=== PATIENT | female | born 1945 | race Caucasian/White ===

== ENCOUNTER 2016-05-22 13:42 | Observation (INO) | payer MEDICARE, BC ==
[~2016-05-22] VITALS: Ht 162.6 cm; Wt 79.5 kg
[~2016-05-22 13:42] MED LIST: ALPR0.5T6 PO; ATOR10TA65 PO; BUPR150T6 PO; CYCL-319 PO; DULO20CA17 PO; FURO40TA4 PO; HYDR-3498 PO; METO25TA4 PO; OLAN5TAB5 PO; ROPI1TAB PO; TRAM50TA2 PO
[2016-05-22] MEDS ORDERED: SOD CHLORIDE 0.9% 1,000 ML IV STA (16:27)
[2016-05-22 16:56] LABS: ADD SCAN DIFF NO
[2016-05-22 16:59] LABS: BASOPHILS % 0.4 % (0.0-2.0); EOSINOPHILS # 0.2 10^3/ul (0.0-0.5); EOSINOPHILS % 2.5 % (0.0-7.0); HEMATOCRIT 39.5 % (37.0-47.0); HEMOGLOBIN 12.9 g/dl (12.0-16.0); LYMPHOCYTES # 2.2 10^3/ul (0.8-2.9); LYMPHOCYTES % 24.2 % (15.0-51.0); MEAN CORPUSCULAR HGB CONC 32.7 g/dl (32.0-37.0); MEAN PLATELET VOLUME 9.6 fl (7.4-10.4); MONOCYTE # 0.5 10^3/ul (0.3-0.9); MONOCYTES % 5.9 % (0.0-11.0); NEUTROPHILS % 66.7 % (39.0-77.0); PLATELET COUNT 236 10^3/UL (140-415); RED BLOOD COUNT 4.03 10^6/ul (4.20-5.40); RED CELL DISTRIBUTION WIDTH 14.4 % (11.5-14.5)
[2016-05-22 17:01] LABS: ADD UMIC YES; URINE BILIRUBIN (Dip) NEGATIVE (NEGATIVE); URINE BLOOD (Dip) NEGATIVE (NEGATIVE); URINE COLOR LT. YELLOW (YELLOW); URINE GLUCOSE (Dip) NEGATIVE (NEGATIVE); URINE KETONES (Dip) NEGATIVE (NEGATIVE); URINE LEUKOCYTE ESTERASE (Dip) NEGATIVE (NEGATIVE); URINE NITRITE (Dip) POSITIVE (NEGATIVE); URINE TOTAL PROTEIN (Dip) NEGATIVE (NEGATIVE); URINE UROBILINOGEN (Dip) 0.2 E.U./dL (0.1-1.0)
[2016-05-22 17:12] LABS: CHLORIDE 105 mmol/L (97-110); SODIUM 147 mmol/L (135-144)
[2016-05-22 17:14] LABS: ALBUMIN/GLOBULIN RATIO 1.53; ANION GAP 17 (8-16); ASPARTATE AMINO TRANSFERASE 65 IU/L (15-46); BILIRUBIN,INDIRECT 0.1 mg/dl (0-1.1); BILIRUBIN,TOTAL 0.1 mg/dl (0.2-1.3); CARBON DIOXIDE 29 mmol/L (21-31); CREATININE 0.76 mg/dl (0.44-1.00); TOTAL PROTEIN 6.6 g/dl (6.1-8.1)
[2016-05-22 17:15] LABS: ALANINE AMINOTRANSFERASE 82 IU/L (13-69); ALKALINE PHOSPHATASE 119 IU/L (42-121); BLOOD UREA NITROGEN 16 mg/dl (7-20); CALCIUM 9.5 mg/dl (8.4-10.2); GLUCOSE 101 mg/dl (70-220)
[2016-05-22 17:17] LABS: BACTERIA,URINE MANY; SQUAMOUS EPITHELIAL CELL,UR MODERATE; URINE RBCS NONE SEEN /HPF ([, 0])
[2016-05-22] MEDS ORDERED: CEFTRIAXONE 1 GM/50 ML (PMX) 50 ML IVPB ONE (17:30)
[2016-05-22 17:34] LABS: TROPONIN-I < 0.012 ng/ml (0.00-0.12)
--- NOTE | 2016-05-22 17:42 | RADRPT ---
PROCEDURE: Chest 1 views. CLINICAL INDICATION: Chest pain and trauma TECHNIQUE: AP views of the chest was obtained. COMPARISON: None. FINDINGS: The heart is large. The lungs are hyperexpanded. Scattered atelectasis is noted in the bilateral lo wer lobes. No consolidations are identified. No pneumothorax is seen. The osseous structures are osteopenic, but appear grossly intact. Degenerative changes are seen in the shoulders. IMPRESSION: Cardiomegaly . Hyperexpanded lungs. Scattered atelectasis in the bilateral lower lobes. No visualized traumatic injury. If there is high clinical suspicion for traumatic injury, further evaluation with CT should be consi dered. RPTAT: AA .Joshua Chu MD, Date Time Electronically viewed and signed by .Joshua Chu MD, on 05/22/2016 17:42 .P/
--- NOTE | 2016-05-22 17:44 | RADRPT ---
PROCEDURE: Right knee radiographs. CLINICAL INDICATION: Right knee pain. TECHNIQUE: Three views. Frontal, lateral, and oblique. COMPARISON: No prior studies are available for comparison. FINDINGS: There is no fracture or dislocation. The soft tissues are normal. There are degenerative changes with osteophytes arising from all 3 joint compartment margins. There is lateral and patellofemoral joint compartment narrowing. There is lateral joint compartment defo rmity and subarticular sclerosis. There is associated valgus deformity. There is no lytic or blastic lesion. There is no radiopaque foreign body. IMPRESSION: 1. Severe degenerative changes predominately involving the lateral joint compartment. 2. No acute abnormality. RPTAT: QQ .Sohail Lee MD, MD Date Time Electronically viewed and signed by .Sohail Lee MD, on 05/22/2016 17:44 .R/
--- NOTE | 2016-05-22 17:54 | RADRPT ---
PROCEDURE: CT Brain without contrast. CLINICAL INDICATION: Altered mental status. TECHNIQUE: A CT of the brain without contrast was performed utilizing axial sections from the skul l base through the vertex. The patient was scanned without intravenous contrast enhancement. Sagitta l and coronal reformatted images were obtained using the data from the axial images. Total exam DLP is 720.23 mGy-cm. CTDIvol is 44.63 mGy. One or more of the following dose reduction techniques were used: Automated exposure control, adjustment of the mA and/or kV according to patient size, use of iterative reconstruction technique. COMPARISON: None available. FINDINGS: There is normal ann-white matter differentiation. There is enlargement of the ventricles and subarachnoid spaces consistent with atrophy. There is decreased attenuation of the periventricular white matter consistent with microangiopathic ischemic change. There is no intracranial hemorrhage or space-occupying lesion. There are vascular calcifications consistent with atherosclerosis. There is no skull fracture or lytic lesion. IMPRESSION: 1. Atrophy. 2. Microangiopathic ischemic change. 3. Atherosclerosis. 4. Otherwise unremarkable noncontrast CT scan of the brain. 5. No intracranial hemorrhage. RPTAT: QQ .Sohail Lee MD, Date Time Electronically viewed and signed by .Sohail Lee MD, on 05/22/2016 17:54 .R/
--- NOTE | 2016-05-22 18:28 | ERA ---
ER Documentation Chief Complaint Date/Time DATE: 05/22/16 TIME: 18:22 Chief Complaint FELL 4 DAYS AGO,HIT HER HEAD,COMPLAINTS OF HEADACHE AND NECK PAIN.NO KO HPI 71-year-old woman presents with for recent falls and cloudy mentation. states she has been confused for the last 3 days and recently fell and struck her scalp against the wall and sustained bruising to the right knee. She has been urinating more frequently. She has had no fevers or chills, no chest pain, no shortness of breath, no vomiting or diarrhea. ROS All systems reviewed and are negative except as per history of present illness. Medications Home Meds Active Scripts Cyclobenzaprine Hcl* (Cyclobenzaprine Hcl*) 10 Mg Tablet, 10 MG PO TID, #15 TAB Prov:PRANAV FRIEND 11/06/14 Hydrocodone Bit-Acetaminophen* ([place]*) 5-325 Mg Tab, 1 TAB PO Q6 Y for PAIN, # 20 TAB Prov:PRANAV FRIEND 11/06/14 Reported Medications Duloxetine Hcl* (Duloxetine Hcl*) 20 Mg Capsule.dr, 20 MG PO QAM, CAP 11/06/14 Tramadol HCl (Tramadol HCl) 50 Mg Tab, 50 MG PO BID Y for PAIN, TAB 11/06/14 Metoprolol Tartrate* (Lopressor*) 25 Mg Tablet, 25 MG PO BID, TAB 11/06/14 Atorvastatin Calcium (Atorvastatin Calcium) 10 Mg Tab, 10 MG PO HS, TAB 11/06/14 Bupropion Hcl* (Bupropion XL*) 150 Mg Tab.er.24h, 150 MG PO DAILY, TAB.SA 11/06/14 Alprazolam* (Alprazolam*) 0.5 Mg Tablet, 0.5 MG PO QHS Y for ANXIETY, TAB 11/06/14 Furosemide* (Furosemide*) 40 Mg Tablet, 40 MG PO DAILY, TAB 11/06/14 Olanzapine* (Zyprexa*) 5 Mg Tablet, 5 MG PO BID, TAB 11/06/14 Ropinirole Hcl* (Ropinirole Hcl*) 1 Mg Tablet, 1 MG PO TID, TAB 11/06/14 Allergies Allergies: Coded Allergies: morphine (Verified Allergy, Intermediate, 11/06/14) PMhx/Soc Hypercholesterolemia, anxiety, psychiatric illness History of Surgery: Yes (spine, arm) Anesthesia Reaction: No Hx Neurological Disorder: No Hx Respiratory Disorders: No Hx Cardiac Disorders: Yes (CHF, HTN, High cholesterol) Hx Psychiatric Problems: No Hx Miscellaneous Medical Probl: Yes (diabetes, gout, tumor removal) Hx Alcohol Use: Yes (occasional) Hx Substance Use: No Hx Tobacco Use: No Smoking Status: Never smoker FmHx Family History: No diabetes Physical Exam Vitals Vital Signs Date Time Temp Pulse Resp B/P Pulse Ox O2 Delivery O2 Flow Rate FiO2 05/22/16 18:45 97.8 78 18 167/89 97 Room Air 05/22/16 13:55 97.8 96 18 157/87 98 Physical Exam GENERAL: Well-developed, dehydrated, afebrile HEENT: Dry mucous membranes, pink conjunctiva, no cervical spine tenderness or step-off deformities, no goiter, no jaundice or icterus, extraocular movements intact without pain. No submandibular induration, and no pharyngeal erythema NEURO: Alert and oriented 2, appears confused, able to answer simple questions and follow simple commands, cranial nerves II through XII intact bilaterally, pupils equal round reactive to light, no focal deficits or facial asymmetry, sensation intact distally Strength 5/5 in upper and lower extremities bilaterally CARDIAC: Regular rate and rhythm, no murmurs rubs or gallops LUNGS: Clear bilaterally no wheezing crackles or stridor ABDOMEN: Soft nontender, no guarding, no rigidity, no rebound, no psoas sign no obturator sign. Normoactive bowel sounds SKIN: Warm and dry to touch, positive soft tissue contusion to the anterior right knee without bony tenderness, no ecchymosis, no target lesions, and without ulcers EXTREMITIES: No clubbing cyanosis or edema, calves are bilaterally symmetrical, no Homans sign, no popliteal cord sign. Distal pulses equal and bilateral PSYCH: Confused Result Diagram: 05/22/16 1646 05/22/16 1646 Results 24 hrs Laboratory Tests Test 05/22/16 16:38 05/22/16 16:46 Urine Color LT. YELLOW Urine Clarity CLOUDY Urine pH 6.0 Urine Specific [place] 1.025 Urine Ketones NEGATIVE Urine Nitrite POSITIVE Urine Bilirubin NEGATIVE Urine Urobilinogen 0.2 E.U./dL Urine Leukocyte Esterase NEGATIVE Urine Microscopic RBC NONE SEEN/HPF Urine Microscopic WBC 5-10/HPF Urine Squamous Epithelial Cells MODERATE Urine Bacteria MANY Urine Hemoglobin NEGATIVE Urine Glucose NEGATIVE% Urine Total Protein NEGATIVE White Blood Count 9.010^3/ul Red Blood Count 4.0310^6/ul Hemoglobin 12.9g/dl Hematocrit 39.5% Mean Corpuscular Volume 98.0fl Mean Corpuscular Hemoglobin 32.0pg Mean Corpuscular Hemoglobin Concent 32.7g/dl Red Cell Distribution Width 14.4% Platelet Count 35722^3/UL Mean Platelet Volume 9.6fl Neutrophils % 66.7% Lymphocytes % 24.2% Monocytes % 5.9% Eosinophils % 2.5% Basophils % 0.4% Nucleated Red Blood Cells % 0.0/100WBC Neutrophils # 6.010^3/ul Lymphocytes # 2.210^3/ul Monocytes # 0.510^3/ul Eosinophils # 0.210^3/ul Basophils # 0.010^3/ul Nucleated Red Blood Cells # 0.010^3/ul Sodium Level 147mmol/L Potassium Level 4.0mmol/L Chloride Level 105mmol/L Carbon Dioxide Level 29mmol/L Anion Gap 17 Blood Urea Nitrogen 16mg/dl Creatinine 0.76mg/dl Glucose Level 101mg/dl Calcium Level 9.5mg/dl Total Bilirubin 0.1mg/dl Direct Bilirubin 0.00mg/dl Indirect Bilirubin 0.1mg/dl Aspartate Amino Transf (AST/SGOT) 65IU/L Alanine Aminotransferase (ALT/SGPT) 82IU/L Alkaline Phosphatase 119IU/L Troponin I < 0.012ng/ml Total Protein 6.6g/dl Albumin 4.0g/dl Globulin 2.60g/dl Albumin/Globulin Ratio 1.53 Lipase 160U/L Current Medications Medications (Trade) Dose Ordered Sig/Sergio Route PRN Reason Start Time Stop Time Status Last Admin Dose Admin Sodium Chloride 1,000 ml @ 2,000 mls/hr Q30M STAT IV 05/22/16 16:27 05/22/16 16:56 DC 05/22/16 16:51 Ceftriaxone Sodium 50 ml @ 100 mls/hr ONCE ONCE IVPB 05/22/16 17:30 05/22/16 17:59 DC 05/22/16 17:43 Ceftriaxone Sodium 50 ml @ 100 mls/hr Q24H IVPB 05/23/16 18:00 Sodium Chloride (1/2 NS) 1,000 ml @ 90 mls/hr Q11H7M IV 05/22/16 18:10 05/23/16 16:23 IV Flush (NS 3 ml) 3 ml PER PROTOCOL IV 05/22/16 18:30 Ondansetron HCl (Zofran Inj) 4 mg Q6H PRN IV NAUSEA AND/OR VOMITING 05/22/16 18:30 Acetaminophen (Tylenol Tab) 650 mg Q6H PRN PO PAIN LEVEL 1-3 OR FEVER 05/22/16 18:30 Docusate Sodium (Colace) 100 mg Q12H PRN PO CONSTIPATION 05/22/16 18:30 Magnesium Hydroxide (Milk Of Mag) 30 ml DAILY PRN PO CONSTIPATION 05/22/16 18:30 Zolpidem Tartrate (Ambien) 5 mg QHS PRN PO SLEEP 05/22/16 18:30 Pantoprazole (Protonix Tab) 40 mg DAILY@06 PO 05/23/16 06:00 Procedures/[facility] IV line was established patient was placed on blemish remover rhythm strip revealed a sinus rhythm at about 80 bpm with upright P and T waves. Patient was afebrile. I administered 2 L normal saline intravenously for dehydration. Urine analysis was positive for infection I treated here with ceftriaxone 1 g IV. CBC was unremarkable, electrolytes revealed dehydration with a BUN/creatinine of 16/0.8, liver function tests are normal, troponin was negative. EKG performed, read by me revealed a normal sinus rhythm at 76 bpm, normal axis , with a right ventricular conduction delay and a QRS duration of 108 ms and a first-degree atrioventricular block at 206 ms. There is prolonged QT of 506 ms. One AP view of the chest performed, read by me reveals no acute infiltrates, normal mediastinum, sharp costophrenic and cardiac borders, no air under the diaphragm. Otherwise unremarkable chest x-ray. X-ray right knee 3V Interpreted by me: Bones: No fracture Joints: No dislocation Foreign body: None CT scan of the brain was negative for acute bleed mass or shift. I spoke to Dr. Davis regarding the patient's presentation and symptomatology he agreed to plan, we will admit the patient to [facility] for continued IV hydration and IV antibiotics. Departure Diagnosis: Primary Impression: Acute encephalopathy Additional Impressions: Acute UTI Contusion of right knee Qualified Code: S80.01XA - Contusion of right knee, initial encounter Accident due to mechanical fall without injury Qualified Code: W19.XXXA - Accident due to mechanical fall without injury, initial encounter Dehydration Condition: RAFAEL Butts MD May 22, 2016 18:28
[2016-05-22] MEDS ORDERED: ACETAMINOPHEN 325 MG TAB PO PRN (18:30)
[2016-05-22] MEDS ORDERED: ONDANSETRON 4 MG INJ IV PRN (18:30)
[2016-05-22] MEDS ORDERED: ZOLPIDEM 5 MG TAB PO PRN (18:30)
[2016-05-22] MEDS ORDERED: DOCUSATE SODIUM 100 MG CAP PO PRN (18:30)
[2016-05-22] MEDS ORDERED: NACL 0.9% 3 ML SYG IV SCH (18:30)
[2016-05-22] MEDS ORDERED: MAGNESIUM HYDROXIDE 30ML CUP PO PRN (18:30)
[2016-05-22] MEDS ORDERED: ALBUTEROL 0.083% (NEB) 2.5 MG/3 ML AMP HHN STA (18:49)
[2016-05-22 21:15] VITALS: PULSE 86; TEMP 97.8
[2016-05-22] MEDS: SOD CHLORIDE 0.45% 1,000 ML IV SCH (21:29)
[2016-05-22] MEDS ORDERED: METO-429 PO (22:42)
[2016-05-22] MEDS ORDERED: LOSA25TA5 PO (22:42)
[2016-05-22] MEDS ORDERED: DULO30CA47 PO (22:42)
[2016-05-22] MEDS ORDERED: ALLO100T PO (22:43)
[2016-05-22] MEDS ORDERED: COLC0.6T6 PO (22:49)
[2016-05-23 00:30] VITALS: Ht 162.6 cm; Wt 79.5 kg
[2016-05-23] MEDS ORDERED: PANTOPRAZOLE (EC) 40 MG TAB PO SCH (06:00)
[2016-05-23] MEDS: SOD CHLORIDE 0.45% 1,000 ML IV SCH (08:39)
[2016-05-23 08:49] VITALS: BP 138/67; RESP 18
[2016-05-23] MEDS ORDERED: ALBUTEROL/IPRATROPIUM (NEB) 3 ML AMP HHN STA (08:56)
[2016-05-23 10:06] LABS: ADD SCAN DIFF NO
[2016-05-23 10:09] LABS: BASOPHILS % 0.5 % (0.0-2.0); EOSINOPHILS # 0.2 10^3/ul (0.0-0.5); EOSINOPHILS % 3.1 % (0.0-7.0); HEMATOCRIT 37.3 % (37.0-47.0); HEMOGLOBIN 11.9 g/dl (12.0-16.0); LYMPHOCYTES # 1.8 10^3/ul (0.8-2.9); LYMPHOCYTES % 27.6 % (15.0-51.0); MEAN CORPUSCULAR HEMOGLOBIN 31.9 pg (29.0-33.0); MEAN CORPUSCULAR HGB CONC 31.9 g/dl (32.0-37.0); MEAN PLATELET VOLUME 9.9 fl (7.4-10.4); MONOCYTE # 0.4 10^3/ul (0.3-0.9); MONOCYTES % 5.5 % (0.0-11.0); NEUTROPHIL # 4.1 10^3/ul (1.6-7.5); NEUTROPHILS % 62.8 % (39.0-77.0); PLATELET COUNT 203 10^3/UL (140-415); RED BLOOD COUNT 3.73 10^6/ul (4.20-5.40); RED CELL DISTRIBUTION WIDTH 14.5 % (11.5-14.5); WHITE BLOOD COUNT 6.6 10^3/ul (4.8-10.8)
[2016-05-23 10:21] LABS: POTASSIUM 3.2 mmol/L (3.5-5.1)
[2016-05-23 10:23] LABS: CREATININE 0.75 mg/dl (0.44-1.00)
[2016-05-23 10:24] LABS: MAGNESIUM 1.6 mg/dl (1.7-2.5); PHOSPHORUS 4.2 mg/dl (2.5-4.9)
[2016-05-23] MEDS ORDERED: POTASSIUM CHLORIDE (SR) 20 MEQ TAB PO STA (12:45)
--- NOTE | 2016-05-23 13:44 | RADRPT ---
PROCEDURE: XR Chest. CLINICAL INDICATION: Wheezing . TECHNIQUE: PA and lateral chest x-ray. COMPARISON: 05/22/2016 FINDINGS: The lungs are clear. There is mild hyperinflation of lungs. Mild cardiomegaly with calcific atherosc lerosis of the aorta is present.. The osseous structures are unremarkable. IMPRESSION: 1. No acute cardiopulmonary disease. 2. Cardiomegaly with calcified aorta. 3. Mild hyperinflation. RPTAT: VV .Florencio Jones MD, Date Time Electronically viewed and signed by .Florencio Jones MD, MD on 05/23/2016 13:44 .L/
[2016-05-23] MEDS ORDERED: MAGNESIUM SULFATE 2 GM/50 ML 50 ML IVPB ONE (14:00)
[2016-05-23] MEDS ORDERED: BARIUM SULF 2% 450 ML BTL (BERRY SMOOTHIE) PO ONE (16:00)
--- NOTE | 2016-05-23 16:21 | PDOCDIS ---
Discharge Instructions CONDITION Patient Condition: Stable HOME CARE INSTRUCTIONS: Diet Instructions: Low Fat /Cholesterol ACTIVITY: Activity Restrictions: No Restrictions FOLLOW UP/APPOINTMENTS Appointments Follow up with PCP Thursday as previously scheduled Outpatient CT abdomen/pelvis with rectal contrast to evaluate for possible colovesicular fistula, to be arranged by your PCP. KHADIJAH NGUYEN May 23, 2016 16:21
[2016-05-23] MEDS ORDERED: LEVO500T72 PO (16:22)
[2016-05-23] MEDS ORDERED: CEFTRIAXONE 1 GM/50 ML (PMX) 50 ML IVPB SCH ×2 (16:43→18:00)
[2016-05-23] MEDS ORDERED: ROPINIROLE 1 MG TAB PO SCH (21:00)
[2016-05-23] MEDS ORDERED: ATORVASTATIN 10 MG TAB PO SCH (21:00)
[2016-05-23] MEDS ORDERED: METOPROLOL 50 MG TAB PO SCH (21:00)
[2016-05-24] MEDS ORDERED: BUPROPION (XL) 150 MG TAB PO SCH (09:00)
[2016-05-24] MEDS ORDERED: DULOXETINE 30 MG CAP DR PO SCH (09:00)
--- NOTE | 2016-05-26 07:47 | HP ---
DATE OF ADMISSION: 05/22/2016 CHIEF COMPLAINT ON ADMISSION: Altered mental status and status post fall 4 days ago. ADMITTING PHYSICIAN: Dr. Lemus DISCHARGING PHYSICIAN: Dr. Lemus HISTORY OF PRESENT ILLNESS: This is a 71-year-old female with history of hypertension, major depres sive disorder, and chronic arthritis who was brought into the emergency department by her wi th reported episode of fall 4 days ago with altered mental status over the past 3 days. The patient apparently fell 4 days ago. When she fell, she did have head trauma. She also landed on her right knee at that time, and apparently since around that time, the patient was noted to have difficulty focusing. The patient also reports that she felt a little dizzy and off when she would be walking. She did not have any deficit of motor. In the emergency department, she was found to have a urinar y tract infection based on her UA. She also has a urine culture positive for gram-negative rods. S he has been on Rocephin. The patient denies any fevers, chills, chest pains, nausea, or vomiting. She denies any diarrhea, per se. She has been taking Lasix once or twice a week. She reports that she has been having frequent urination. She actually reports that when her bladder gets full, she c annot contain the urine and it seems to be coming out of both her vagina and rectum. The patient re ports that she does have formed stools and does not see any stool in her urine; however, when she go es to urinate, she does have urine coming out through the urethra but also through the rectum. When it comes through the rectum, it is mixed with some specks of stool. 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 She reports that she has been having urinary frequency for years. This is since she had 4 babies. She denies any abdominal pain. She denies seeing any pus through her urethra or her rectum. She denies any rectal pain. Given the chronicity of the sym ptoms, at this point, the patient really wants to go home, and since she is fairly asymptomatic in t erms no signs of sepsis, she will be discharged home on Levaquin to cover for her urinary tract infe ction, and I will give her a prescription to have a CAT scan of the abdomen and pelvis with rectal c ontrast done to rule out colovesical fistula. This can be done through her primary care physician. The patient is doing well this morning. She has ambulated with physical therapy with no DME needed . She had a workup in the emergency department including CAT scan of the brain and also chest x-ray and knee x-ray with no signs of acute trauma. The patient is very insistent to go home which is sa fe at this point. She can always return if there is any recurrence of her symptoms. ALLERGIES: MORPHINE. PAST MEDICAL HISTORY: 1. Major depressive disorder. 2. Hypertension. 3. Osteoarthritis. 4. Gout. 5. Hyperlipidemia. PAST SURGICAL HISTORY: 1. Status post schwannoma removal on her back. 2. Status post left upper extremity orthopedic surgery due to fracture secondary to trauma. SOCIAL HISTORY: The patient does not smoke. She lives with her . She drinks occasionally. REVIEW OF SYSTEMS: As per HPI. OUTPATIENT MEDICATIONS: 1. Lipitor 40 mg p.o. at bedtime. 2. Losartan 25 mg p.o. daily. 3. Lopressor 50 mg p.o. b.i.d. 4. Bupropion XL 150 mg p.o. daily. 5. Duloxetine 30 mg p.o. daily. 6. Ropinirole 1 mg p.o. at bedtime. 7. Allopurinol 100 mg p.o. b.i.d. 8. Colcrys 1.2 mg p.o. daily. PHYSICAL EXAMINATION: VITAL SIGNS: Temperature is 97.6, heart rate of 82, sinus rhythm, respiratory rate 20, blood pressu re 138/67. The patient is satting 96% on room air. GENERAL: She is alert and oriented x4. She is a very pleasant lady in no acute distress currently. She is back to her baseline. HEENT: Pupils are equally round and reactive to light. Extraocular muscles are intact. Anicteric sclerae. NECK: No JVD, no thyromegaly noted. HEART: Regular rate and rhythm. No murmur, rubs, or gallops. LUNGS: Clear to auscultation bilaterally. ABDOMEN: Slightly obese, nontender, nondistended. Bowel sounds are present. EXTREMITIES: No edema, clubbing, or cyanosis. NEUROLOGIC: Intact with muscle strength 5/5, sensation intact. LABORATORY DATA: White blood cell count is 6.6, hemoglobin 11.9, hematocrit 37.3, platelet count of 203. Chemistry with a sodium of 149, potassium 3.2, chloride 110, bicarbonate 25, BUN 10, creatini ne 0.75, glucose of 112, calcium 9.0, phosphorus 4.2, magnesium 1.6. Liver function testing grossly within normal except AST and ALT 65 and 82. Troponin less than 0.012. Urinalysis is positive for nitrites. Urine culture positive for gram-negative rods. RADIOLOGICAL DATA: 1. Chest x-ray which was done last night and repeated this morning shows no acute cardiopulmonary d isease. Cardiomegaly is noted. Mild hyperinflation. 2. X-ray of the right knee shows severe degenerative joint disease, no acute abnormalities. 3. CAT scan of the brain shows atrophy, atherosclerosis, microangiopathic ischemic changes, otherwi se no acute changes. ASSESSMENT AND PLAN: This is a 71-year-old female with 1. A little bit of altered mental status, status post fall a few days ago, likely secondary to dehy dration. The patient was also on Lasix which she will discontinue at this time. Continue oral hydr ation at home. She seems to have a urinary tract infection. That will be treated with Levaquin. T he patient is being discharged home today. She has been evaluated by physical therapy and does not need any assistance. 2. Urinary tract infection, gram-negative rods. I will discharge the patient on Levaquin. She can follow up with the primary care physician on Thursday. 3. Possible colovesical fistula with no signs of severe infection at this point. The patient is ve ry insistent on going home; therefore, I will refer her to her primary care physician to obtain a CA T scan of the abdomen and pelvis with rectal contrast in order to further evaluate if she actually d oes have a fistula. If she does have it, then she may then need a colonoscopy for further evaluatio n. 4. Major depressive disorder. Continue home medication. 5. Hypertension. Continue home medication. 6. Hyperlipidemia. Continue home medication. 7. Gout. Resume home medication. The patient is to stay hydrated. DISPOSITION: Discharge home. Follow up with primary care physician on Thursday as scheduled with out patient CAT scan of the abdomen and pelvis with rectal contrast to rule out colovesical fistula. Dictated By: KHADIJAH MAN/SHABBIR Conf#: [id number] DID#: [id number]
== END 2016-05-23 18:52 | disposition home or self-care (01) ==
LOC: FTE 13:42 → INTOOBSV 18:14 → PP2 18:14
PROVIDERS: ADMIT Internal Medicine; ATTEND Internal Medicine
DX: R41.82 Altered mental status, unspecified (principal); N39.0 Urinary tract infection, site not specified; S80.01XA Contusion of right knee, initial encounter; E78.5 Hyperlipidemia, unspecified; I11.0 Hypertensive heart disease with heart failure; I50.9 Heart failure, unspecified; F32.9 Major depressive disorder, single episode, unspecified; E86.0 Dehydration; E78.00 Pure hypercholesterolemia, unspecified; E11.9 Type 2 diabetes mellitus without complications; M10.9 Gout, unspecified; Z88.6 Allergy status to analgesic agent; W19.XXXA Unspecified fall, initial encounter; Y93.9 Activity, unspecified; Y99.9 Unspecified external cause status; Y92.9 Unspecified place or not applicable
CPT/HCPCS: 36415; 70450; 71010; 71020; 73562; 80048; 80053; 81001; 83690; 83735; 84100; 84484; 85025; 87086; 93005; 94644; 94664; 96374; 97162; 99285; G0378; J0696; J3475; J7030; 81003

== ENCOUNTER 2017-03-10 15:37 | Emergency (ER) | END 2017-03-10 17:39 | disposition left against medical advice (07) ==

== ENCOUNTER 2018-10-20 20:39 | Inpatient (IN) | payer BC, MEDICARE ==
[~2018-10-20] VITALS: Ht 157.5 cm; Wt 85.9 kg
[~2018-10-20 20:39] MED LIST changes: +ACET325T33 PO; +ALLO100T PO; +ALLO300T2 PO; -ALPR0.5T6 PO; +ASPI325T32 PO; +COLC0.6T6 PO; -CYCL-319 PO; +Colchicine PO; -DULO20CA17 PO; +DULO30CA47 PO; +FOLI-49 PO; -HYDR-3498 PO; +HYDR-3601 PO; +LEVO500T48 PO; +LOSA100T15 PO; +LOSA25TA12 PO; +MELO7.5T38 PO; +METO-319 PO; +METO-429 PO; -METO25TA4 PO; +NICO-544 TD; -OLAN5TAB5 PO; -TRAM50TA2 PO
[2018-10-20] MEDS ORDERED: KETOROLAC 15 MG INJ IV STA (20:55)
[2018-10-20] MEDS ORDERED: SOD CHLORIDE 0.9% 500 ML IV STA (20:55)
[2018-10-20] MEDS ORDERED: MAGNESIUM SULFATE 2 GM/50 ML 50 ML IVPB ONE (21:30)
[2018-10-20] MEDS ORDERED: POTASSIUM CHLORIDE (SR) 20 MEQ TAB PO ONE (22:26)
[2018-10-20] MEDS ORDERED: ACETAMINOPHEN 325 MG TAB PO PRN (22:30)
[2018-10-20] MEDS ORDERED: ASPIRIN 81 MG TAB PO ONE (22:30)
[2018-10-20] MEDS ORDERED: ENALAPRILAT 1.25 MG INJ IV ONE (22:30)
[2018-10-20] MEDS ORDERED: NACL 0.9% 3 ML SYG IV SCH (22:30)
[2018-10-20] MEDS ORDERED: DOCUSATE SODIUM 100 MG CAP PO PRN (22:30)
[2018-10-20] MEDS ORDERED: ONDANSETRON 4 MG TAB PO PRN (22:30)
[2018-10-20] MEDS ORDERED: NITROGLYCERIN (SL) 0.4 MG TAB SL ONE (22:30)
[2018-10-20] MEDS ORDERED: FUROSEMIDE 40 MG INJ IV ONE (22:30)
[2018-10-20] MEDS ORDERED: NITROGLYCERIN (SL) 0.4 MG TAB SL PRN (22:30)
[2018-10-20] MEDS ORDERED: BISACODYL (EC) 5 MG TAB PO PRN (22:30)
[2018-10-20] MEDS: HEPARIN 5,000 UNIT/1 ML VIAL SC SCH (22:42)
[2018-10-20] MEDS ORDERED: ZOLPIDEM 5 MG TAB PO ONE (23:30)
[2018-10-21] VITALS: BP 120/73; PULSE 101; RESP 20; Ht 157.5 cm; Wt 85.9 kg
[2018-10-21] MEDS: HYDROCODONE/APAP (5/325) TAB PO PRN ×3 (03:41→13:42)
[2018-10-21 04:36] VITALS: BP 122/79; PULSE 93; RESP 17
[2018-10-21] MEDS: HEPARIN 5,000 UNIT/1 ML VIAL SC SCH ×2 (05:33→13:47)
[2018-10-21 07:08] VITALS: BP 116/86; PULSE 97; RESP 20
[2018-10-21] MEDS: ROPINIROLE 1 MG TAB PO SCH ×2 (08:16→13:42)
[2018-10-21] MEDS ORDERED: LOSARTAN 50 MG TAB PO SCH (09:00)
[2018-10-21] MEDS ORDERED: COLCHICINE 0.6 MG CAP PO SCH (09:00)
[2018-10-21] MEDS ORDERED: METOPROLOL (XL) 50 MG TAB PO SCH (09:00)
[2018-10-21] MEDS ORDERED: FUROSEMIDE 40 MG INJ IV SCH (09:00)
[2018-10-21] MEDS ORDERED: BUPROPION (XL) 150 MG TAB PO SCH (09:00)
[2018-10-21] MEDS ORDERED: FOLIC ACID 1 MG TAB PO SCH (09:00)
[2018-10-21] MEDS ORDERED: DULOXETINE 30 MG CAP DR PO SCH (09:00)
[2018-10-21] MEDS ORDERED: ALLOPURINOL 300 MG TAB PO SCH (09:00)
[2018-10-21 11:40] VITALS: BP 132/79; PULSE 92; RESP 20
[2018-10-21] MEDS ORDERED: FUROSEMIDE 20 MG INJ IV ONE (14:30)
[2018-10-21] MEDS ORDERED: ATORVASTATIN 10 MG TAB PO SCH (21:00)
[2018-10-22] MEDS ORDERED: FUROSEMIDE 40 MG TAB PO SCH (09:00)
== END 2018-10-21 15:20 | disposition home or self-care (01) | DRG 562 ==
LOC: E/R 20:39 → TEL 22:23
PROVIDERS: ADMIT Family Medicine; ATTEND Family Medicine
PROC: 0RSJXZZ Reposition Right Shoulder Joint, External Approach (ICD-10-PCS; principal; 2018-10-20)
DX: S43.004A Unspecified dislocation of right shoulder joint, initial encounter (principal); I50.23 Acute on chronic systolic (congestive) heart failure; I11.0 Hypertensive heart disease with heart failure; E78.5 Hyperlipidemia, unspecified; E02 Subclinical iodine-deficiency hypothyroidism; F41.9 Anxiety disorder, unspecified; M1A.9XX0 Chronic gout, unspecified, without tophus (tophi); M19.90 Unspecified osteoarthritis, unspecified site; W18.2XXA Fall in (into) shower or empty bathtub, initial encounter; Y93.89 Activity, other specified; Y92.012 Bathroom of single-family (private) house as the place of occurrence of the external cause; Y99.8 Other external cause status
CPT/HCPCS: 36415; 71045; 80048; 80053; 80061; 81001; 82306; 82962; 83036; 83690; 83735; 83880; 84443; 84484; 85025; 85610; 85730; 87086; 93005; 93306; 96374; 96375; 97162; 97165; J1644; J1885; J1940; J3475; J7040